=== PATIENT | male | born 1975 | race Caucasian/White ===

== ENCOUNTER 2017-12-03 10:19 | Observation (INO) | payer SELFPAY ==
--- NOTE | 2017-12-03 10:30 | EDPHY ---
H & P Stated Complaint: 2 weeks intermittent cp with hx cardiac stents/off blood thinners/ran out Time Seen by Provider: 12/03/17 10:29 - Personal History Current Tetanus Diphtheria and Acellular Pertussis (TDAP): Unsure - Medical/Surgical History Hx Asthma: No Hx Chronic Respiratory Disease: No Hx Diabetes: No Hx Cardiac Disease: Yes Hx Renal Disease: No Hx Cirrhosis: No Hx Alcoholism: No Hx HIV/AIDS: No Hx Splenectomy or Spleen Trauma: No Other PMH: cardiac stent/htn off meds - Social History Smoking Status: Current every day smoker Constitutional: Initial Vital Signs Temperature (C) 36.5 C 12/03/17 10:20 Heart Rate 85 12/03/17 10:20 Respiratory Rate 18 12/03/17 10:20 Blood Pressure 161/104 H 12/03/17 10:20 O2 Sat (%) 95 12/03/17 10:20 O2 Delivery Mode Room Air Allergies/Adverse Reactions: No Known Allergies Allergy (Unverified 12/03/17 10:20) Home Medications: Medication Instructions Recorded Ibuprofen [Motrin (*)] 200 mg PO DAILY PRN 12/03/17 Medical Decision Making ED Course/Re-evaluation: CHIEF COMPLAINT: Chest pain HISTORY OF PRESENT ILLNESS: The patient is a 42 y/o male with a history of a right coronary artery cardiac stent complaining of intermittent chest pain for the past 2 weeks. In 2005 he had an angioplasty and cardiac stent placed after developing severe heartburn and left arm pain. Around 1 year ago he stopped taking Plavix, Metoprolol, and baby Aspirin as he ran out. Several days ago he developed mild heartburn and left arm pain. Yesterday he was hiking which caused the symptoms worsen; he also developed jaw pain. The pain typically occurs in the morning or while exerting himself. Currently he is in no pain. Denies headache, shortness of breath, abdominal pain, urinary or bowel complaints, fever, numbness, paresthesias. REVIEW OF SYSTEMS: A 10 point review of systems was performed and is negative with the exception of the elements mentioned in the history of present illness. PHYSICAL EXAM: HR, BP, O2 Sat, RR. Temp noted General Appearance: Alert, well hydrated, appropriate, and non-toxic appearing. Head: Atraumatic without scalp tenderness or obvious injury Eyes: Pupils equal, round, reactive to light and accommodation, EOMI, no trauma , no injection. Ears: Clear bilaterally, no perforation, normal landmarks Nose: Atraumatic, no rhinorrhea, clear. Throat: There is no erythema or exudates, no lesions, normal tonsils, mucus membranes moist. Neck: Supple, nontender, no lymphadenopathy. Respiratory: No retractions, no distress, no wheezes, and no accessory muscle use. Lungs are clear to auscultation bilaterally. Cardiovascular: Regular rate and rhythm, no murmurs, rubs, or gallops. Bilateral carotid, radial, dorsalis pedis, and posterior tibial pulses intact. Good capillary refill all extremities. Gastrointestinal: Abdomen is soft, nontender, non-distended, no masses, no rebound, no guarding, no peritoneal signs. Musculoskeletal: Normal active ROM of all extremities, atraumatic. Neurological: Alert, appropriate, and interactive. Non-focal neuro. Skin: No rashes, good turgor, no nodules on palpation. Past medical history: Hypertension Past surgical history: Cardiac stent (placed in [place] in 2005), angioplasty Family history: Denies Social history: Originally from [place], employed, single DIAGNOSTICS/PROCEDURES/CRITICAL CARE TIME: EKG: The 12 lead EKG was interpreted by myself as sinus rhythm with a rate of 78 , inferior infarct. See hard copy and/or "tracemaster" electronic copy for interpretation. DIFFERENTIAL DIAGNOSIS: The differential diagnosis for the patient's chest pain included but was not limited to acute coronary syndrome, myocardial ischemia, pulmonary embolus, chest wall pain, pleural inflammation, and pulmonary infectious causes. MEDICAL DECISION MAKING: The patient is a 42 y/o male with a history of a right coronary artery cardiac stent presenting with intermittent chest pain for the past 2 weeks. He has not been taken his prescriptions for the past year. Labs and EKG ordered; 324mg PO Aspirin administered. 1030: I interpreted EKG as sinus rhythm with a rate of 78, inferior infarct. 1115: Patients troponin is negative. 1122: Consulted with hospitalist service, Dr. Gu accepts admission of this patient to the PCU. 1127: Consulted with Dr. Myers, truck hopper, regarding this patient. He agrees to consult on this patient during his admission. 1145: Reassessed patient and discussed laboratory and imaging studies. He is comfortable with plan for admission. 1215: Consulted with Dr. Myers regarding patient who most likely has an unstable angina. - Data Points Laboratory Results: Laboratory Results 12/03/17 10:40 12/03/17 10:40 12/03/17 12/03/17 12/03/17 10:59 10:40 10:40 WBC 11.17 10^3/uL H 10^3/uL (3.80-9.50) RBC 5.39 10^6/uL 10^6/uL (4.40-6.38) Hgb 17.3 g/dL g/dL (13.7-17.5) Hct 49.8 % % (40.0-51.0) MCV 92.4 fL fL (81.5-99.8) MCH 32.1 pg pg (27.9-34.1) MCHC 34.7 g/dL g/dL (32.4-36.7) RDW 13.0 % % (11.5-15.2) Plt Count 236 10^3/uL 10^3/uL (150-400) MPV 10.0 fL fL (8.7-11.7) Neut % (Auto) 65.5 % % (39.3-74.2) Lymph % (Auto) 21.9 % % (15.0-45.0) [place] % (Auto) 8.1 % % (4.5-13.0) Eos % (Auto) 2.9 % % (0.6-7.6) Baso % (Auto) 0.9 % % (0.3-1.7) Nucleat RBC Rel Count 0.0 % % (0.0-0.2) Absolute Neuts (auto) 7.31 10^3/uL H 10^3/uL (1.70-6.50) Absolute Lymphs (auto) 2.45 10^3/uL 10^3/uL (1.00-3.00) Absolute Monos (auto) 0.91 10^3/uL H 10^3/uL (0.30-0.80) Absolute Eos (auto) 0.32 10^3/uL 10^3/uL (0.03-0.40) Absolute Basos (auto) 0.10 10^3/uL 10^3/uL (0.02-0.10) Absolute Nucleated RBC 0.00 10^3/uL 10^3/uL (0-0.01) Immature Gran % 0.7 % % (0.0-1.1) Immature Gran # 0.08 10^3/uL 10^3/uL (0.00-0.10) Sodium 136 mEq/L mEq/L (135-145) Potassium 4.1 mEq/L mEq/L (3.3-5.0) Chloride 103 mEq/L mEq/L (97-110) Carbon Dioxide 21 mEq/l L mEq/l (22-31) Anion Gap 12 mEq/L mEq/L (8-16) BUN 7 mg/dL mg/dL (7-23) Creatinine 0.9 mg/dL mg/dL (0.7-1.3) Estimated GFR > 60 Glucose 139 mg/dL H mg/dL (70-100) Calcium 9.8 mg/dL mg/dL (8.5-10.4) POC Troponin I 0.01 ng/mL ng/mL (0.00-0.08) NT-Pro-B Natriuret Pep 51 pg/mL pg/mL (0-125) Medications Given: Discontinued Medications Aspirin (Aspirin) 324 mg PO EDNOW ONE Stop: 12/03/17 11:04 Last Admin: 12/03/17 11:04 Dose: 324 mg Point of Care Test Results: Chemistry 12/03/17 10:59 POC Troponin I 0.01 ng/mL ng/mL (0.00-0.08) Departure - Departure Disposition: [facility] Inpatient Acute Clinical Impression: Acute coronary syndrome Chest pain Qualifiers: Chest pain type: other chest pain Qualified Code(s): R07.89 - Other chest pain Condition: Fair Referrals: NONE *PRIMARY CARE P,. [Primary Care Provider] - As per Instructions Report Scribed for: Ray Locke Report Scribed by: Salud Cannon Date of Report: 12/03/17 Time of Report: 10:33
--- NOTE | 2017-12-03 10:32 | CPEKG ---
Heart Rate: 78 RR Interval: 769 P-R Interval: 172 QRSD Interval: 84 QT Interval: 380 QTC Interval: 433 P [place]: 51 QRS [place]: 7 T Wave [place]: 10 EKG Severity - ABNORMAL ECG - EKG Impression: SINUS RHYTHM EKG Impression: INFERIOR INFARCT, AGE INDETERMINATE Electronically Signed By: Ray Locke 03-Dec-2017 13:15:52
[2017-12-03] MEDS ORDERED: ASPIRIN 81 MG CHEWABLE TAB ONE (11:01)
[2017-12-03 11:03] LABS: PLATELET COUNT 236 10^3/uL (150-400)
[2017-12-03] MEDS ORDERED: ASPIRIN 81 MG CHEWABLE TAB PO ONE (11:03)
[2017-12-03] MEDS ORDERED: DIAZEPAM 5 MG TAB PO ONE (13:16)
[2017-12-03] MEDS ORDERED: ACETAMINOPHEN 325 MG TAB PO PRN (13:16)
[2017-12-03] MEDS ORDERED: FAMOTIDINE 20 MG TAB PO ONE (13:16)
[2017-12-03] MEDS ORDERED: diphenhydrAMINE 25 MG CAP PO ONE (13:16)
[2017-12-03] MEDS ORDERED: NITROGLYCERIN 0.4 MG BTL SL PRN (13:16)
[2017-12-03] MEDS ORDERED: TEMAZEPAM 15 MG CAP PO PRN (13:16)
[2017-12-03] MEDS ORDERED: LIDOCAINE 1% 300 MG/30 ML SDV ONE (13:18)
[2017-12-03] MEDS ORDERED: HEPARIN 10,000 UNIT/10 ML MDV (1,000 UNIT/ML) ONE (13:19)
[2017-12-03] MEDS ORDERED: MIDAZOLAM 2 MG/2 ML VIAL ONE (13:19)
[2017-12-03] MEDS ORDERED: VERAPAMIL 5 MG/2 ML VIAL ONE (13:19)
[2017-12-03] MEDS ORDERED: fentaNYL 100 MCG/2 ML INJ ONE (13:19)
[2017-12-03] MEDS ORDERED: IOPAMIDOL (ISOVUE-370) 150 ML BTL IV ONE (13:20)
[2017-12-03] MEDS ORDERED: NS 1,000 ML IV SCH (13:30)
--- NOTE | 2017-12-03 13:32 | PDCARCONS ---
Cardiology Consult Reason for Consult: Known CAD, current presentation with chest discomfort. Chief Complaint: "Heartburn. Requesting Physician: Dr. Ray Locke. 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 He has known coronary artery disease. Back in May of 2006 he presented with an inferior infarct in initially underwent balloon angioplasty of the right coronary artery. Approximately 3 months later he was brought back and underwent coronary stenting of the same vessel. He has done well since then. Unfortunately, he continues to smoke upwards of 2 packs of cigarettes daily. Currently smoking about a half a pack a day. Additionally, about 2 years ago, he stopped taking his medications. He has been in the local area here for about a month. Shortly after arrival he noted that his breathing was not as good as it usually is back in [place]. He was experiencing modest symptoms of exertional dyspnea. Additionally, he was experiencing intermittent episodes of "heartburn."These are described as burning precordial chest discomfort episodes that last anywhere from 30-60 minutes. These would occur on a daily basis and were associated with radiation of this discomfort both to the jaw and throat as well as to the left upper extremity. Usually these resolved spontaneously. About a week ago he experienced a holiday from these symptoms. These symptoms began again on Sunday. He noted a particularly bothersome episode this last Sunday when he was hiking with his children. They were walking around to trail near [facility] when he experienced similar symptoms. He was able to complete the walk and went back to his truck where he sat and rested until his symptoms resolved. He had another episode this morning which was similar to the other events. As result he came to the emergency department. With these episodes he had no symptoms of shortness of breath, nausea, vomiting or diaphoresis. The symptoms are similar to those that he experienced back in May of 2006 at the time of his myocardial infarction. He has not had any dizziness or lightheadedness. He notes no episodes of palpitations. He has not had any lower extremity swelling. The pain is not respiratory phasic. There is no history of fever, chills or sweats. He has not had cough, sputum production or hemoptysis. The pain was not described as ripping or tearing. On arrival to the emergency department he was hemodynamically stable, pain-free and had an ECG without dynamic ST/T changes. History Information - Allergies/Home Medication List Allergies/Adverse Reactions: No Known Allergies Allergy (Unverified 12/03/17 10:20) Home Medications: Ibuprofen [Motrin (*)] 200 mg PO DAILY PRN 12/03/17 [Last Taken 12/02/17] I have personally reviewed and updated: family history, medical history, social history, surgical history Past Medical History: Coronary artery disease, hypertension, hyperlipidemia. - Surgical History Additional surgical history: None significant - Social History Smoking Status: Current every day smoker Alcohol Use: Other (He drinks 3-4 beers on a daily basis. He does not use hard liquor. He has not used drugs in over 10 years.) Cardiac History - Cardiac History Past Cardiac History: CAD, PCI Physical Exam Physical Exam: Temp Pulse Resp BP Pulse Ox 36.7 C 72 16 147/95 H 94 12/03/17 13:13 12/03/17 13:13 12/03/17 13:13 12/03/17 13:13 12/03/17 13:13 Constitutional: no apparent distress, appears nourished, not in pain Eyes: PERRL, anicteric sclera, EOMI Ears, Nose, Mouth, Throat: moist mucous membranes, hearing normal, ears appear normal, no oral mucosal ulcers Cardiovascular: regular rate and rhythym, no murmur, rub, or gallop, No edema Respiratory: no respiratory distress, no rales or rhonchi, clear to auscultation Gastrointestinal: normoactive bowel sounds, soft, non-tender abdomen, no palpable masses Genitourinary: no bladder fullness, no bladder tenderness Skin: warm, normal color, no rashes or abrasions, no fluctuance, no induration, No mottled Musculoskeletal: full muscle strength, no muscle tenderness, normal joint ROM, no joint effusions Psychiatric: interacting appropriately, not anxious, not encephalopathic, thought process linear Lymph, Heme, Immunologic: no cervical LAD, no supraclavicular LAD Lab and Imaging 12/03/17 10:40 12/03/17 10:40 WBC 11.17 10^3/uL (3.80-9.50) H 12/03/17 10:40 RBC 5.39 10^6/uL (4.40-6.38) 12/03/17 10:40 Hgb 17.3 g/dL (13.7-17.5) 12/03/17 10:40 Hct 49.8 % (40.0-51.0) 12/03/17 10:40 MCV 92.4 fL (81.5-99.8) 12/03/17 10:40 MCH 32.1 pg (27.9-34.1) 12/03/17 10:40 MCHC 34.7 g/dL (32.4-36.7) 12/03/17 10:40 RDW 13.0 % (11.5-15.2) 12/03/17 10:40 Plt Count 236 10^3/uL (150-400) 12/03/17 10:40 MPV 10.0 fL (8.7-11.7) 12/03/17 10:40 Neut % (Auto) 65.5 % (39.3-74.2) 12/03/17 10:40 Lymph % (Auto) 21.9 % (15.0-45.0) 12/03/17 10:40 [place] % (Auto) 8.1 % (4.5-13.0) 12/03/17 10:40 Eos % (Auto) 2.9 % (0.6-7.6) 12/03/17 10:40 Baso % (Auto) 0.9 % (0.3-1.7) 12/03/17 10:40 Nucleat RBC Rel Count 0.0 % (0.0-0.2) 12/03/17 10:40 Absolute Neuts (auto) 7.31 10^3/uL (1.70-6.50) H 12/03/17 10:40 Absolute Lymphs (auto) 2.45 10^3/uL (1.00-3.00) 12/03/17 10:40 Absolute Monos (auto) 0.91 10^3/uL (0.30-0.80) H 12/03/17 10:40 Absolute Eos (auto) 0.32 10^3/uL (0.03-0.40) 12/03/17 10:40 Absolute Basos (auto) 0.10 10^3/uL (0.02-0.10) 12/03/17 10:40 Absolute Nucleated RBC 0.00 10^3/uL (0-0.01) 12/03/17 10:40 Immature Gran % 0.7 % (0.0-1.1) 12/03/17 10:40 Immature Gran # 0.08 10^3/uL (0.00-0.10) 12/03/17 10:40 Sodium 136 mEq/L (135-145) 12/03/17 10:40 Potassium 4.1 mEq/L (3.3-5.0) 12/03/17 10:40 Chloride 103 mEq/L (97-110) 12/03/17 10:40 Carbon Dioxide 21 mEq/l (22-31) L 12/03/17 10:40 Anion Gap 12 mEq/L (8-16) 12/03/17 10:40 BUN 7 mg/dL (7-23) 12/03/17 10:40 Creatinine 0.9 mg/dL (0.7-1.3) 12/03/17 10:40 Estimated GFR > 60 12/03/17 10:40 Glucose 139 mg/dL (70-100) H 12/03/17 10:40 Calcium 9.8 mg/dL (8.5-10.4) 12/03/17 10:40 POC Troponin I 0.01 ng/mL (0.00-0.08) 12/03/17 10:59 NT-Pro-B Natriuret Pep 51 pg/mL (0-125) 12/03/17 10:40 Visualized and Interpreted Chest x-ray results: Yes Chest X-ray Interpretation: no infiltrate, normal Visualized and Interpreted imaging results: Yes Interpretation: Normal sinus rhythm, prior inferior infarct age undetermined. Visualized and Interpreted EKG results: Yes Telemetry: Normal sinus rhythm. Echocardiogram: Not performed. A/P Assessment: 42-year-old male with known premature atherosclerosis who suffered a myocardial infarction back in May of 2006. At that time, he underwent PCI of the right coronary artery. Since then, unfortunately, he continues to smoke heavily and has not used his prescribed medications for the last several years. He presents now with very concerning symptoms for unstable angina pectoris. Fortunately, at the present time, he is pain-free and his ECG has not indicated any dynamic changes. His initial troponins are negative. Plan: Because of his clinical presentation with unstable symptoms and known premature CAD he and I discussed possible options for further diagnosis and treatment. We decided to proceed with coronary angiography. The risks, benefits and alternatives were discussed. Further recommendations will be made pending the outcome of that study. Review of Systems Review of Systems: - Review of Systems Constitutional: no symptoms reported EENTM: no symptoms reported Respiratory: see HPI Cardiac: see HPI Gastrointestinal/Abdominal: see HPI Genitourinary: no symptoms Musculoskelatal: no symptoms Skin: no symptoms Neurological: no symptoms Hematologic/Lymphatic: no symptoms reported Immunologic/allergic: no symptoms reported All Other Systems: Reviewed and Negative
--- NOTE | 2017-12-03 13:35 | PDHPUP ---
History & Physical Update H&P update statement: This history and physical update is based on an assessment of the patient which was completed after admission or registration (within 24 hours), but prior to the surgery/procedure. H&P update: H&P reviewed & patient examined, no change in patient's condition since H&P completed
--- NOTE | 2017-12-03 13:35 | PDPROPOC ---
Sedation Plan of Care Sedation Plan of Care: vital signs stable, mental status noted, patient educated of risks, benefits, alternatives, patient can tolerate sedation ASA Classification: ASA 1 Planned drugs: fentanyl, midazolam Mallampati Score: Class 1 Mallampati Reference Image: Patient passed 3-3-2 rule?: Yes
[2017-12-03 13:54] LABS: INR 0.93 (0.83-1.16); PROTIME(PATIENT) 12.7 SEC (12.0-15.0)
--- NOTE | 2017-12-03 14:53 | PDDXCAT ---
Diagnostic Cath Note - . 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 LAD: Moderate caliber transapical vessel which becomes small caliber and diffusely diseased distally. There is a single principal diagonal branch identified. LCX: Moderate caliber vessel. Becomes diminutive after a single principal obtuse marginal branch. This obtuse marginal contains an eccentric 50% lesion. There is a severely diseased very small proximal obtuse marginal branch that is surgically and interventionally inconsequential. RCA: Dominant. The PDA and 3 posterolateral branches are identified. A widely patent stent is noted in the proximal vessel. The distal vessel following the PDA and between the 1st posterolateral branch is severely diseased with multiple lesions up to 50-75%. This is a very small caliber vessel. LVEF: 55-60%. Wall motion: Mild basal diaphragmatic hypokinesis. Complications: None. Estimated blood loss: <50ml Closure method: TR Band Assessment: Known coronary artery disease with a widely patent stent appreciated in the proximal right coronary artery. The patient does have high- grade branch vessel disease as described above that could be contributing to symptoms of angina. Preserved left ventricular systolic function with mild basal diaphragmatic hypokinesis. Plan: Patient will be treated with maximal medical therapy. Intervention: None. Patient Problems: Problems Problem Status Onset Acute coronary syndrome Acute Chest pain Acute
[2017-12-03] MEDS ORDERED: ATROPINE SULFATE 1 MG/10 ML SYR IVP PRN (14:59)
[2017-12-03] MEDS ORDERED: ONDANSETRON 4 MG/2 ML VIAL IVP PRN (14:59)
[2017-12-03] MEDS ORDERED: NICOTINE POLACRILEX 2 MG GUM B PRN (15:02)
[2017-12-03] MEDS ORDERED: NICOTINE 21 MG/24 HR PATCH TD SCH (15:15)
--- NOTE | 2017-12-03 15:32 | GHP ---
[f rep st] HISTORY AND PHYSICAL DATE OF ADMISSION: 12/03/2017 CHIEF COMPLAINT: Chest pain. HISTORY: This is a 42-year-old man with a past medical history of coronary artery disease status pos t stent approximately 11 years ago who presents with several weeks of increasing chest pain. The pat amaury notes that he has pain in his chest that feels like heartburn that also involves his left arm an d jaw. He notes this has been progressive over the last several weeks and much more intense yesterda y. He notes that this is very similar to the pain he had when he had his cardiac event many years ag o though less intense. He is currently working here, but originally from [place] where he has had t he majority of his care. He does note that some of his symptoms increased when he was exerting himse lf hiking in the [place] near [facility]. He did note that the pain improved when he was able t o sit. PAST MEDICAL HISTORY: Includes. 1. Coronary artery disease. 2. Hypertension. 3. Hyperlipidemia. PAST SURGICAL HISTORY: Angiography and stent placement. SOCIAL HISTORY: Patient is a 9-zyne-kzb-day smoker with a greater than 80 pack-year smoking history. 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 He has 3 children, 2 of whom are here with him in [place]. He drinks beer daily, generally 3-4 beers per day. FAMILY HISTORY: Grandmother with cardiac disease. REVIEW OF SYSTEMS: 10-point review of systems obtained, negative except as per HPI. HOME MEDICATIONS: Ibuprofen. ALLERGIES: No known drug allergies. PHYSICAL EXAMINATION: VITAL SIGNS: BP 147/95, heart rate 72, respiratory rate 16, O2 sats 94% on ro om air, temperature 36.7. GENERAL APPEARANCE: This is a well-developed, well-nourished man. He is awake and alert. He is in no acute distress. EYES: Anicteric. HENT: Oropharynx clear. CARDIOVAS CULAR: Regular rate and rhythm, no MRG. PULMONARY: CTA bilaterally. Normal work of breathing. AB DOMEN: Soft, nontender, nondistended. EXTREMITIES: No clubbing, cyanosis, or edema. SKIN: Warm, dry, well perfused. NEURO/PSYCH: Oriented, appropriate, pleasant. CLINICAL DATA: Labs reviewed. Troponin is negative. White blood cell count is 11.7. Chemistry is remarkable only for a glucose of 139. EKG personally reviewed and interpreted shows a normal sinus rhythm with Q-waves in II, III, aVF. ASSESSMENT/PLAN: This is a 42-year-old man with a past medical history of coronary artery disease pr esenting with chest pain with radiation to left arm and jaw. 1. Chest pain. Unfortunately, this is his typical anginal symptoms, and given his history concernin g for acute coronary syndrome, Cardiology has been consulted and is taking the patient for coronary a ngiography. He has not been on any cardiac medications for the last several years. Further recommen dations to follow pending his catheterization report. 2. Hypertension. The patient has mildly elevated blood pressure since arrival, again in the setting of being off all of his cardiac medications. Will likely be restarted on beta-leeann therapy prior to discharge pending again cath report. 3. Hyperglycemia. The patient with concerns that he might have diabetes as he states he has issues when he has not eaten for some time. We will check a hemoglobin A1c given his random glucose of 140. 4. Tobacco use. Recommending cessation. Will provide nicotine patch and gum while inhouse. 5. Inpatient status given concerns for presentation consistent with acute coronary syndrome. The danni shariftoma will require greater than 48-hour stay for evaluation and management of above. Patient is new to my care. Care plan reviewed with the ER physician. /[id number]/MODL
[2017-12-03 18:16] VITALS: BP 124/74
[2017-12-03] MEDS ORDERED: METOPROLOL TARTRATE 25 MG TAB PO SCH (21:00)
[2017-12-04] MEDS ORDERED: ATORVASTATIN CALCIUM 40 MG TAB PO SCH (09:00)
[2017-12-04] MEDS ORDERED: PANTOPRAZOLE SODIUM 40 MG TAB PO SCH (09:00)
--- NOTE | 2017-12-08 10:46 | GDS ---
[f rep st] DISCHARGE SUMMARY DISCHARGE DIAGNOSES: 1. Chest discomfort consistent with angina. 2. Coronary artery disease. 3. Hypertension. 4. Hyperlipidemia. HOSPITAL COURSE: The patient was seen and admitted through the emergency department with symptoms of chest discomfort concerning for angina. He has a history of known coronary artery disease with prev ious RCA territory infarct and PCI. Because of his limiting symptoms, he underwent coronary angiogra phy. There is a full and separately dictated report noted on the chart. His disease was essentially branch vessel disease thought best served by medical management. As a result, he was started back o n his medications to include baby aspirin, atorvastatin 40 mg daily, and metoprolol 25 mg twice daily . At time of discharge, he was up ambulating on the victor, feeling well without chest discomfort. PERTINENT LABORATORIES DURING THIS ADMISSION: His total cholesterol was 211, triglycerides 468, LDL not calculated, HDL 34. Hemoglobin A1c 6.4. HOME MEDICATIONS: 1. Low-dose aspirin. 2. Atorvastatin 40 mg daily. 3. Metoprolol 25 mg twice daily. FOLLOWUP: He will follow with myself at [facility] within the next 1-2 weeks. /[id number]/MODL
== END 2017-12-03 18:53 | disposition home or self-care (01) ==
LOC: F2W 13:04
PROVIDERS: ADMIT Internal Medicine; ATTEND Internal Medicine
PROC: B2111ZZ Fluoroscopy of Multiple Coronary Arteries using Low Osmolar Contrast (ICD-10-PCS; principal; 2017-12-03)
PROC: 4A023N7 Measurement of Cardiac Sampling and Pressure, Left Heart, Percutaneous Approach (ICD-10-PCS; principal; 2017-12-03)
PROC: B2151ZZ Fluoroscopy of Left Heart using Low Osmolar Contrast (ICD-10-PCS; principal; 2017-12-03)
DX: I25.110 Atherosclerotic heart disease of native coronary artery with unstable angina pectoris (principal); I11.0 Hypertensive heart disease with heart failure; E78.5 Hyperlipidemia, unspecified; F17.200 Nicotine dependence, unspecified, uncomplicated; Z95.5 Presence of coronary angioplasty implant and graft
CPT/HCPCS: 84484-PO; C1769; J1200; J1644; J2250; J3010; Q9967